=== PATIENT | female | born 1970 | race Caucasian/White ===

== ENCOUNTER 2022-01-31 19:45 | Emergency (ER) | payer SELFPAY ==
[2022-01-31] MEDS ORDERED: LIDOCAINE 1% INJ 20 ML VIAL IJ ONE (20:00)
[2022-01-31] MEDS ORDERED: TETANUS,DIPTH,PERTUSS P/F (BOOSTRIX) 0.5 ML VIAL IM ONE (20:00)
[2022-01-31] MEDS ORDERED: RX-CEPHALEXIN (KEFLEX) 250 MG CAP PPK#4 PO STA (20:11)
[2022-01-31] MEDS ORDERED: CEPH500T PO (20:15)
--- NOTE | 2022-01-31 20:15 | ED Upper Extremity ---
General Chief Complaint: Foreign Body Stated Complaint: FISH HOOK STUCK IN R HAND WITH A DEEDEE ON IT Allergies and Home Medications Allergies Coded Allergies: No Known Drug Allergies (Unverified , 01/31/22) Past [id number]-[id number] Hx Patient Social History Tobacco Use?: Yes Tobacco type used: Cigarettes Smoking Status: Current Everyday Smoker Use of E-Cig and/or Vaping dev: No Substance use?: No Alcohol Use?: Yes Alcohol type: Beer, Hard Liquor, Wine Alcohol Frequency: Couple times a week Pt feels they are or have been: No Immunizations Up To Date Influenza Vaccine Up-to-Date: No; Not Current Physical Exam Vital Signs Capillary Refill : Height, Weight, BMI Height: '" Weight: lbs. oz. kg; BMI Method: Progress/Results/Core Measures Results/Orders My Orders Orders - JOHNNA CASTAÑEDA DO Dipht,Pertuss(Acell),Tet Adult (Boostrix (01/31/22 20:00) Lidocaine 1% Inj 20 Ml (Xylocaine 1% Inj (01/31/22 20:00) Rx-Cephalexin Capsule (Rx-Keflex Capsule (01/31/22 20:11) Medications Given in ED Current Medications Medications Dose Ordered Sig/Britton Route Start Time Stop Time Status Last Admin Dose Admin Lidocaine HCl 20 ml ONCE ONCE IJ 01/31/22 20:00 01/31/22 20:01 DC 01/31/22 20:01 20 ML Departure Impression Primary Impression: Fish hook injury of right thumb Additional Impression: Apcdkhiucn-[id number]-[id number] (DPT) vaccination administered at current visit Disposition: HOME, SELF-CARE Condition: Stable Departure-Patient Inst. Decision time for Depature: 20:13 Referrals: NO,LOCAL PHYSICIAN (PCP) Primary Care Physician Patient Instructions: Diphtheria and Tetanus Toxoids, and Acellular Pertussis Vaccine, Removal of Foreign Body in Skin Add. Discharge Instructions: SOAK IN WARM SOAPY WATER 2-3 TIMES A DAY APPLY TRIPLE ANTIBIOTIC TO WOUND 2-3 TIMES A DAY TYLENOL AND MOTRIN NEEDED FOR PAIN RETURN TO ER IF SYMPTOMS WORSEN All discharge instructions reviewed with patient and/or family. Voiced understa nding. Scripts Cephalexin (Cephalexin) 500 Mg Tablet 500 MG PO QID, #20 TAB 0 Refills Prov: JOHNNA CASTAÑEDA DO 01/31/22 JOHNNA CASTAÑEDA DO Jan 31, 2022 20:15
[2022-01-31 20:34] VITALS: BP 163/91
== END 2022-01-31 20:39 | disposition home or self-care (01) ==
LOC: EDUNIT# 19:45 → ER 19:47
DX: S69.91XA Unspecified injury of right wrist, hand and finger(s), initial encounter (principal); F17.210 Nicotine dependence, cigarettes, uncomplicated; Z23 Encounter for immunization; Z28.310 Unvaccinated for COVID-19; W45.8XXA Other foreign body or object entering through skin, initial encounter
CPT/HCPCS: 99284